=== PATIENT | male | born 1965 | race Caucasian/White ===

== ENCOUNTER → 2022-06-15 11:53 | Outpatient (BNVA) | payer BC, SELFPAY | PROVIDERS: Visit Provider Nurse Practitioner Family | DX: J06.9 Acute upper respiratory infection, unspecified (principal); E66.9 Obesity, unspecified; Z12.5 Encounter for screening for malignant neoplasm of prostate; B96.89 Other specified bacterial agents as the cause of diseases classified elsewhere; J02.8 Acute pharyngitis due to other specified organisms; Z76.89 Persons encountering health services in other specified circumstances | CPT/HCPCS: 80053; 80061; G0103 ==